=== PATIENT | female | born 1980 | race Caucasian/White ===

== ENCOUNTER → 2021-03-10 10:28 | Outpatient (CLI) | payer OTHER, SELFPAY ==
--- NOTE | ~2021-03-10 | MM_ITS ---
EXAMINATION: MM screening siobhna BI w ok HISTORY: Screening mammogram TECHNIQUE: Craniocaudal and mediolateral oblique 3-D tomosynthesis images were obtained and synthetic 2-D images were generated. CAD analysis was submitted and interpreted. COMPARISON: 05/13/2019 BREAST PARENCHYMAL COMPOSITION: The breasts are extremely dense, which lowers the sensitivity of mamm ography. FINDINGS: There are some grouped microcalcifications in the very posterior upper outer left breast. D iagnostic left mammogram with magnification views is recommended for better definition. Otherwise there is no evidence of suspicious mass, calcification, or architectural distortion to sugg est malignancy in either breast. There has been no other suspicious interval change. IMPRESSION: 1. Microcalcifications, posterior upper outer left breast 2. Diagnostic mammogram with magnification views is recommended, with ultrasound if required BI-RADS Category 0: Incomplete: Needs additional imaging evaluation. Reviewed, dictated and finalized at location A. IMPRESSION: 1. Microcalcifications, posterior upper outer left breast 2. Diagnostic mammogram with magnification views is recommended, with ultrasoun d if required BI-RADS Category 0: Incomplete: Needs additional imaging evaluation.
== END ==
PROVIDERS: Visit Provider Nurse Practitioner Obstetrics & Gynecology
DX: Z12.31 Encounter for screening mammogram for malignant neoplasm of breast (principal)
CPT/HCPCS: 77063; 77067

== ENCOUNTER → 2021-04-16 08:00 | Outpatient (CLI) | payer OTHER, SELFPAY ==
--- NOTE | ~2021-04-16 | MMUS_ITS ---
EXAMINATION: MM diagnostic mammo unilat LT, US breast LT limited HISTORY: Grouped microcalcifications in posterior upper outer left breast reported on 03/10/2021 su[facility] win[facility] mammogram TECHNIQUE: ML view of right breast. Magnification ML, MLO and rotated lateral craniocaudal views. CAD analysis was submitted and interpreted. High resolution upper outer quadrant left breast ultrasound was performed. COMPARISON: 03/10/2021 bilateral screening mammogram FINDINGS: MAMMOGRAPHIC FINDINGS: Grouped indeterminate granular appearing microcalcifications are noted in the posterior upper outer l eft quadrant. Sonographic correlation was performed at the upper outer quadrant. There are some scatt ered ULTRASOUND: 1:00 6 cm from nipple: Parallel circumscribed 4.9 x 2.5 x 4.6 mm sonolucency without internal vascula rity or posterior shadowing, likely benign 3:00 5 cm from nipple: Parallel circumscribed sonolucency measuring 3.6 x 2.6 x 5.4 mm, with through transmission, likely a simple cyst. No suspicious mass or shadowing is detected in the upper outer quadrant of the left breast. IMPRESSION: 1. Grouped indeterminate granular microcalcifications in the posterior upper outer left breast 2. Stereotactic biopsy is recommended BI-RADS category 4, suspicious findings. Dr. Paez telephoned the report and stereotactic biopsy recommendation on 04/16/2021 at 0919 hours to Sarita at [phone]. Reviewed, dictated and finalized at location A. IMPRESSION: 1. Grouped indeterminate granular microcalcifications in the posterior upper ou ter left breast 2. Stereotactic biopsy is recommended BI-RADS category 4, suspicious findings. Dr. Paez telephoned the report and stereotactic biopsy recommendation on 2020 at 0919 hours to Sarita at [phone]. IMPRESSION: 1. Grouped indeterminate granular microcalcifications in the posterior upper ou ter left breast 2. Stereotactic biopsy is recommended BI-RADS category 4, suspicious findings. Dr. Paez telephoned the report and stereotactic biopsy recommendation on 2020 at 0919 hours to Sarita at [phone].
== END ==
PROVIDERS: PCP Family Medicine; Visit Provider Nurse Practitioner Obstetrics & Gynecology
DX: R92.8 Other abnormal and inconclusive findings on diagnostic imaging of breast (principal)
CPT/HCPCS: 76642; 77065

== ENCOUNTER → 2023-07-20 13:56 | Outpatient (CLI) | payer OTHER, SELFPAY ==
--- NOTE | ~2023-07-20 | MM_ITS ---
EXAMINATION: MM screening siobhan BI w ok HISTORY: Screening TECHNIQUE: Craniocaudal and mediolateral oblique 3-D tomosynthesis images were obtained and synthetic 2-D images were generated. CAD analysis was submitted and interpreted. COMPARISON: Comparison to multiple prior studies sequentially, with oldest reviewed study dated 04/20. BREAST PARENCHYMAL COMPOSITION: Dense: The breasts are extremely dense, which lowers the sensitivity of mammography. FINDINGS: Stable punctate benign-appearing breast calcifications. There is no evidence of suspicious mass, calcification, or architectural distortion to suggest malignancy in either breast. There has be en no suspicious interval change. IMPRESSION: 1. No mammographic evidence of malignancy. 2. Recommend routine screening mammography in one year. BI-RADS Category 1: Negative Reviewed, dictated and finalized at location A. REPAIR SUPERVISOR
== END ==
PROVIDERS: PCP Nurse Practitioner Obstetrics & Gynecology; Visit Provider Nurse Practitioner Obstetrics & Gynecology
DX: Z12.31 Encounter for screening mammogram for malignant neoplasm of breast (principal)
CPT/HCPCS: 77063; 77067

== ENCOUNTER 2024-10-07 07:13 | Outpatient (CLI) | payer OTHER, SELFPAY ==
--- NOTE | ~2024-10-07 | MM_ITS ---
EXAMINATION: MM screening siobhan BI w ok HISTORY: Screening TECHNIQUE: Craniocaudal and mediolateral oblique 3-D tomosynthesis images were obtained and synthetic 2-D images were generated. CAD analysis was submitted and interpreted. COMPARISON: 07/20/2023 and dating back to 05/13/2019 BREAST PARENCHYMAL COMPOSITION: The breasts are extremely dense, which lowers the sensitivity of mamm ography. FINDINGS: Punctate and bulky calcifications are detected bilaterally, stable and benign in appearance . Redemonstration of a group of clustered microcalcifications within the upper outer left breast for wh ich stereotactic biopsy was recommended in 2020. These microcalcifications have slightly increased in number for which repeat magnification views are recommended for confirmation of their benignity. Stable parenchymal pattern without architectural distortion, discrete masses or significant asymmetry . IMPRESSION: Redemonstration of indeterminate microcalcifications within the upper inner left breast, increasing i n number from the 2020 examination for which repeat magnification views are recommended. BI-RADS Category 0: Incomplete: Needs additional imaging evaluation. Reviewed, dictated and finalized at location A. IMPRESSION: Redemonstration of indeterminate microcalcifications within the upper inner lef t breast, increasing in number from the 2020 examination for which repeat magni fication views are recommended. BI-RADS Category 0: Incomplete: Needs additional imaging evaluation.
== END 2024-10-07 07:14 | disposition home or self-care (01) ==
PROVIDERS: PCP Family Medicine; Visit Provider Obstetrics & Gynecology
DX: Z12.31 Encounter for screening mammogram for malignant neoplasm of breast (principal); R92.8 Other abnormal and inconclusive findings on diagnostic imaging of breast
CPT/HCPCS: 77063; 77067

== ENCOUNTER 2024-10-25 09:13 | Outpatient (CLI) | payer OTHER, SELFPAY ==
--- NOTE | ~2024-10-25 | MM_ITS ---
EXAMINATION: MM diagnostic siobhan LT w ok HISTORY: Follow-up left breast calcifications TECHNIQUE: Additional 3-D tomosynthesis images of the left breast were performed and synthetic 2-D im ages were generated. CAD analysis was submitted and interpreted. COMPARISON: Comparison to multiple prior studies sequentially, with oldest reviewed study dated 04/20. BREAST PARENCHYMAL COMPOSITION: Dense: The breasts are extremely dense, which lowers the sensitivity of mammography. FINDINGS: Clustered calcifications upper outer quadrant of the left breast, posterior third have a re latively monomorphic appearance some of which layer on the medial lateral view. Although they have in creased since prior examination a likely are benign. IMPRESSION: 1. Probable benign left breast calcifications clustered in the upper outer quadrant of the left breas t. 2. Recommend 6 month follow-up diagnostic left mammogram BI-RADS category 3, probably benign findings. Reviewed, dictated and finalized at location A. IMPRESSION: 1. Probable benign left breast calcifications clustered in the upper outer quad rant of the left breast. 2. Recommend 6 month follow-up diagnostic left mammogram BI-RADS category 3, probably benign findings.
== END 2024-10-25 09:14 | disposition home or self-care (01) ==
LOC: MICIMG 09:13
PROVIDERS: PCP Family Medicine; Visit Provider Obstetrics & Gynecology
DX: R92.8 Other abnormal and inconclusive findings on diagnostic imaging of breast (principal)
CPT/HCPCS: 77061; 77065; G0279

== ENCOUNTER 2025-04-28 07:48 | Outpatient (CLI) | payer OTHER, SELFPAY ==
--- NOTE | ~2025-04-28 | MM_ITS ---
EXAMINATION: MM diagnostic siobhan LT w ok HISTORY: Follow-up clustered left breast calcifications. TECHNIQUE: Additional 3-D tomosynthesis images of the left breast were performed and synthetic 2-D images were generated. CAD analysis was submitted and interpreted. COMPARISON: Comparison to multiple prior studies sequentially, with oldest reviewed study dated 05/13/2019. BREAST PARENCHYMAL COMPOSITION: Dense: The breasts are heterogeneously dense, which may obscure small masses FINDINGS: There are punctate calcifications in the upper outer quadrant of the left breast which are clustered and not significantly changed dating back to 04/16/2021. No new masses, calcifications or architectural distortion in the left breast to suggest malignancy. IMPRESSION: 1. Stable left mammogram without evidence for malignancy. No evidence for malignancy. 2. Routine yearly screening mammogram and regular clinical breast examination are recommended. BI-RADS Category 2: Benign finding(s). Reviewed, dictated and finalized at location B. OR ACCOUNTANT IMPRESSION: 1. Stable left mammogram without evidence for malignancy. No evidence for malig dimple. 2. Routine yearly screening mammogram and regular clinical breast examination a re recommended. BI-RADS Category 2: Benign finding(s).
== END 2025-04-28 07:49 | disposition home or self-care (01) ==
PROVIDERS: PCP Student in an Organized Health Care Education/Training Program; Visit Provider Advanced Practice Midwife
DX: R92.0 Mammographic microcalcification found on diagnostic imaging of breast (principal)
CPT/HCPCS: 77061; 77065; G0279